=== PATIENT | male | born 1995 | race Caucasian/White ===

== ENCOUNTER → 2016-05-30 | Outpatient (REF) | LOC: WSOH 08:38 | DX: Z76.89 Persons encountering health services in other specified circumstances (principal) ==

== ENCOUNTER 2017-11-22 19:58 | Emergency (ER) | payer OTHER ==
[~2017-11-22] VITALS: Ht 182.9 cm; Wt 77.3 kg
[2017-11-22 20:03] VITALS: BP 140/81; TEMP 98.1
[2017-11-22] MEDS ORDERED: CLARITIN 1010 MG/TAB PO (20:17)
[2017-11-22] MEDS ORDERED: ALEVE 220MG220 MG PO (20:17)
[2017-11-22] MEDS ORDERED: GLUCOSAMIN 500 (20:17)
[2017-11-22] MEDS ORDERED: IBU400 MG PO (20:18)
[2017-11-22 20:47] VITALS: PULSE 72
== END 2017-11-22 20:47 | disposition home or self-care (01) ==
LOC: COL.ER 19:58
DX: S93.401A Sprain of unspecified ligament of right ankle, initial encounter (principal); J45.909 Unspecified asthma, uncomplicated; X50.0XXA Overexertion from strenuous movement or load, initial encounter; Y93.67 Activity, basketball